=== PATIENT | female | born 1960 ===

== ENCOUNTER 2020-09-11 15:13 | Outpatient (REF) | payer MEDICARE, MEDICAID, SELFPAY ==
[2020-09-11 17:02] LABS: Hematocrit 40.2 % (37-47); Hemoglobin 13.7 g/dl (12.0-16.0); MANUAL DIFF FLAG SCAN; Mean Corpuscular HGB Conc 34.1 g/dl (31.0-35.0); PLT CLUMP 1; SCAN SMEAR FLAG 1
[2020-09-11 17:04] LABS: Eosinophils Percent Auto 0.5 % (0-4); Imm Gran Abs Auto 0.02 X10*3/uL (0.00-0.03); Imm Gran Pct Auto 0.3 % (0.0-0.4); Lymphocytes Absolute Auto 1.9 X10*3/uL (1.2-4.9); Lymphocytes Percent Auto 29.8 % (20-40); Mean Corpuscular Hemoglobin 31.9 pg (27.0-33.0); Mean Corpuscular Volume 93.7 fL (80-98); Mean Platelet Volume 11.9 fL (9.4-12.3); Monocytes Absolute Auto 0.5 X10*3/uL (0.1-1.2); Monocytes Percent Auto 8.6 % (2-11); Neutrophils Absolute Auto 3.8 X10*3/uL (2.0-8.3); Neutrophils Percent Auto 60.8 % (45-73); Platelet Count 113 X10*3/uL (160-400); Red Blood Count 4.29 X10*6/uL (4.20-5.50); Red Cell Distribution Width 12.2 % (11.0-16.0); White Blood Count 6.3 X10*3/uL (4.8-10.8)
[2020-09-11 17:05] LABS: SLIDE REVIEW VERIFIED
[2020-09-11 17:22] LABS: INTERNATIONAL NORM RATIO 1.3 (0.9-1.1)
[2020-09-11 17:57] LABS: Alanine Aminotransferase 75 U/L (0-31); Albumin Level 4.1 g/dL (3.5-5.0); Alkaline Phosphatase 155 U/L (39-117); Anion Gap 13 (12-20); Aspartate Amino Transferase 60 U/L (5-31); Bilirubin Total 0.9 mg/dL (0.0-1.0); Blood Urea Nitrogen 16 mg/dL (9-16); C Reactive Protein 0.12 mg/dL (< or = 0.50); Calcium 9.5 mg/dL (8.4-10.2); Carbon Dioxide 30 mmol/L (22-29); Chloride 103 mmol/L (96-108); Estimated Glomerular Filt Rate 59; Glucose Random 100 mg/dL (60-115); Potassium 3.9 mmol/l (3.3-5.1); Sodium 142 mmol/L (135-145); Total Protein 8.4 g/dL (6.5-8.0)
[2020-09-11 18:14] LABS: Vitamin D 25-OH Total 20.9 ng/mL (>30)
[2020-09-13 13:28] LABS: Anti Nuclear Antibody Screen POSITIVE (NEGATIVE)
[2020-09-15 00:48] LABS: FIB-ALT 67 U/L (6-29); FIB-Alpha-2-Macroglobulin 366 mg/dL (106-279); FIB-Apolipoprotein A1 113 mg/dL (101-198); FIB-GGT 65 U/L (3-70); FIB-Haptoglobin 79 mg/dL (43-212); FIB-Total Bilirubin 0.6 mg/dL (0.2-1.2); Liver Fibrosis Score 0.74; Liver Fibrosis Stage F4; Nec Inflam Act Grade A2; Nec Inflam Act Score 0.57
== END 2020-09-11 15:14 | disposition home or self-care (01) ==
LOC: HO.LAB 15:13
PROVIDERS: PCP Nurse Practitioner Family; Visit Provider Internal Medicine Gastroenterology
DX: K75.4 Autoimmune hepatitis (principal); Z79.899 Other long term (current) drug therapy
CPT/HCPCS: 36415; 80053; 81596; 82306; 85025; 85610; 86038; 86039; 86140; 99202

== ENCOUNTER 2020-09-21 10:29 | Outpatient (REF) | payer MEDICARE, MEDICAID, SELFPAY ==
--- NOTE | 2020-09-21 10:33 | US_ITS ---
EXAMINATION: US ABDOMEN LIMITED WITH ELASTOGRAPHY CLINICAL INFORMATION: Autoimmune hepatitis. COMPARISON: None TECHNIQUE: Limited abdominal ultrasound with attention to liver is performed. FINDINGS: The pancreas is partially obscured by overlying gas. The visualized body of the pancreas is homogeneous in echotexture. The liver is mildly echogenic without any focal lesion or intrahepatic ductal dilatation. The right hepatic lobe measures 16.3 cm and the left hepatic lobe measures 12.8 cm. Normal hepatopedal flow seen in the middle portal vein on Doppler exam. On elastography, the median value is 2.19 m/s. The IQR/median is 0.26. The gallbladder has been surgically removed. The CBD measures 0.5 cm. The right kidney measures 10.2 cm. There is normal cortical thickness. There is an echogenic stone in the lower pole measuring 0.5 x 0.2 x 0.3 cm with twinkling echogenicity. US/US abdomen pacheco w elastography IMPRESSION: Heterogenous echogenic liver without focal lesion. Small nonobstructive echogenic stone lower pole right kidney. The gallbladder has been surgically removed with the CBD measuring 0.5 cm, still within normal limits. On elastography, there is [id number] fibrosis, METAVIR stage F3 - F4.
== END 2020-09-21 10:30 | disposition home or self-care (01) ==
LOC: HO.US 10:29
PROVIDERS: Visit Provider Internal Medicine Gastroenterology
DX: K75.4 Autoimmune hepatitis (principal)
CPT/HCPCS: 76705; 76981